=== PATIENT | male | born 1990 | race African-American/Black ===

== ENCOUNTER 2016-04-22 17:36 | Emergency (ER) | payer OTHER ==
[~2016-04-22 17:36] MED LIST: BACTRIM,SEPT1 TABLET PO; CLONIDINE PO; DISKETS40 MG PO; GRALISE300 MG PO; IBUPROFEN800 MG PO; KEFLEX500 MG PO; MOTRIN800 MG PO; NEURONTIN300 MG PO; TEGRETOL; TRAMADOL HCL50 MG PO
[2016-04-22 18:25] LABS: EOSINOPHIL COUNT 0.3 K/uL (0-0.3); HEMATOCRIT 38.9 % (38.0-50.0); IMMATURE GRANULOCYTE (%) 0.1 % (0.0-0.7); IMMATURE GRANULOCYTE COUNT 0.1 K/uL; LYMPHOCYTE COUNT 2.9 K/uL (1.0-2.8); MCH 27.9 PG (29.0-34.0); MCHC 35.5 G/DL (30.0-36.0); MCV 78.6 FL (86-99); MEAN PLAT.VOLUME 9.4 uM^3 (9.0-12.4); MONOCYTE (%) 5.8 % (3-12); MONOCYTE COUNT 0.4 K/uL (0-0.8); NEUTROPHIL (%) 48.3 % (45-76); NEUTROPHIL COUNT 3.4 K/uL (1.8-6.4); PLATELET COUNT 359 K/uL (156-360); RBC DIS.WIDTH-CV 14.1 % (11.8-14.6); RBC DIS.WIDTH-SD 39.5 % (39-53); RED BLOOD COUNT 4.95 M/uL (4.00-5.50); WHITE BLOOD COUNT 6.9 K/uL (4.1-10.2)
[2016-04-22 18:35] LABS: AMYLASE 64 IU/L (1-118); CHLORIDE 105 mEq/L (99-109); POTASSIUM 3.8 mEq/L (3.7-5.4); SODIUM 142 mEq/L (136-147)
[2016-04-22 18:37] LABS: GLUCOSE 102 mg/dL (70-99)
[2016-04-22 18:39] LABS: ANION GAP 10 MEQ/L (2-14)
[2016-04-22 18:40] LABS: SERUM ETHYL ALCOHOL < 10 mg/dL
[2016-04-22 18:41] LABS: GFR ESTIMATE (CALCULATED) > 59 mL/min/
[2016-04-22 18:42] LABS: UREA NITROGEN (BUN) 9 mg/dL (9-23)
[2016-04-22 18:44] LABS: LIPASE 41 U/L (1.0-51.0)
[2016-04-22] MEDS ORDERED: CLEOCIN300 MG PO (19:49)
[2016-04-22] MEDS ORDERED: OXAYDO5 MG PO (19:49)
[2016-04-22] MEDS ORDERED: PARAFON FORTE500 MG PO (19:49)
== END 2016-04-22 20:51 | disposition home or self-care (01) ==
LOC: TRA 17:36
PROVIDERS: Emergency Medicine
PROC: 0KQ Muscles, Repair (ICD-10-PCS; principal; 2016-04-22)
PROC: 0JQD3ZZ Repair Right Upper Arm Subcutaneous Tissue and Fascia, Percutaneous Approach (ICD-10-PCS; 2016-04-22)
PROC: 3E0234Z Introduction of Serum, Toxoid and Vaccine into Muscle, Percutaneous Approach (ICD-10-PCS; 2016-04-22)
DX: S46.822A Laceration of other muscles, fascia and tendons at shoulder and upper arm level, left arm, initial encounter (principal); S41.011A Laceration without foreign body of right shoulder, initial encounter; X99.1XXA Assault by knife, initial encounter; W10.9XXA Fall (on) (from) unspecified stairs and steps, initial encounter; F11.99 Opioid use, unspecified with unspecified opioid-induced disorder; Z91.14 Patient's other noncompliance with medication regimen; Z23 Encounter for immunization; F17.210 Nicotine dependence, cigarettes, uncomplicated
CPT/HCPCS: 71010; 80048; 81003; 82150; 83690; 85025; 86850; 86900; 86901; 99281; 99285; G0480; J3010

== ENCOUNTER 2016-08-23 14:14 | Emergency (ER) | payer SELFPAY ==
[~2016-08-23] VITALS: Ht 182.9 cm; Wt 86.3 kg
[~2016-08-23 14:14] MED LIST changes: +CLEOCIN300 MG PO; +OXAYDO5 MG PO; +PARAFON FORTE500 MG PO
[2016-08-23] MEDS ORDERED: VIBRAMYCIN100 MG PO (16:48)
[2016-08-23] MEDS ORDERED: INDOCIN50 MG PO (16:48)
[2016-08-23 17:02] VITALS: BP 132/100
== END 2016-08-23 17:03 | disposition home or self-care (01) ==
LOC: EME 14:14
DX: L73.9 Follicular disorder, unspecified (principal); L03.211 Cellulitis of face; F17.200 Nicotine dependence, unspecified, uncomplicated
CPT/HCPCS: 99281

== ENCOUNTER 2016-09-13 03:18 | Emergency (ER) | payer SELFPAY ==
[~2016-09-13 03:18] MED LIST changes: +INDOCIN50 MG PO; +VIBRAMYCIN100 MG PO
[2016-09-13] MEDS ORDERED: NAPROSYN500 MG PO (03:48)
[2016-09-13] MEDS ORDERED: MEDROL DOSEPAK4 MG PO (03:48)
[2016-09-13] MEDS ORDERED: CLEOCIN300 MG PO (03:48)
[2016-09-13] MEDS ORDERED: FLEXERIL10 MG PO (03:48)
== END 2016-09-13 04:05 | disposition left against medical advice (07) ==
LOC: EME 03:18
DX: J34.0 Abscess, furuncle and carbuncle of nose (principal); M54.5 Low back pain
CPT/HCPCS: 99281; 99282

== ENCOUNTER 2016-11-01 15:59 | Emergency (ER) | payer OTHER ==
[~2016-11-01] VITALS: Ht 182.9 cm; Wt 77.2 kg
[~2016-11-01 15:59] MED LIST changes: +FLEXERIL10 MG PO; +MEDROL DOSEPAK4 MG PO; +NAPROSYN500 MG PO
[2016-11-01 21:16] VITALS: BP 142/100
== END 2016-11-01 21:19 ==
LOC: EME 15:59
DX: S02.2XXA Fracture of nasal bones, initial encounter for closed fracture (principal); S16.1XXA Strain of muscle, fascia and tendon at neck level, initial encounter; S00.83XA Contusion of other part of head, initial encounter; Y04.2XXA Assault by strike against or bumped into by another person, initial encounter; Y92.143 Cell of prison as the place of occurrence of the external cause; J34.2 Deviated nasal septum; K02.9 Dental caries, unspecified; Z72.0 Tobacco use
CPT/HCPCS: 70450; 70486; 72125; 99281; 99284; J2270

== ENCOUNTER 2017-05-11 15:02 | Emergency (ER) | payer OTHER ==
[~2017-05-11] VITALS: Ht 190.5 cm; Wt 91.5 kg
[2017-05-11 16:53] LABS: HEMATOCRIT 39.9 % (38.0-50.0); MCH 29.7 PG (29.0-34.0); MCHC 35.1 G/DL (30.0-36.0); MCV 84.5 FL (86-99); PLATELET COUNT 275 K/uL (156-360); RBC DIS.WIDTH-CV 13.5 % (11.8-14.6); RBC DIS.WIDTH-SD 41.8 % (39-53); RED BLOOD COUNT 4.72 M/uL (4.00-5.50); WHITE BLOOD COUNT 10.9 K/uL (4.1-10.2)
[2017-05-11 17:06] LABS: CHLORIDE 106 mEq/L (99-109); SODIUM 142 mEq/L (136-147)
[2017-05-11 17:08] LABS: GLUCOSE 116 mg/dL (70-99)
[2017-05-11 17:12] LABS: CREATININE 0.8 mg/dL (0.6-1.3); GFR ESTIMATE (CALCULATED) > 59 mL/min/ (58.99-99999); UREA NITROGEN (BUN) 8 mg/dL (9-23)
[2017-05-11] MEDS ORDERED: VENTOLIN HFA18 GM IH (17:37)
[2017-05-11] MEDS ORDERED: LEVAQUIN750 MG PO (17:37)
[2017-05-11] MEDS ORDERED: NAPROSYN500 MG PO (17:37)
[2017-05-11] MEDS ORDERED: PREDNISONE20 MG PO (17:37)
[2017-05-11 18:02] VITALS: BP 130/98
== END 2017-05-11 18:04 | disposition home or self-care (01) ==
LOC: EME 15:02
DX: J18.9 Pneumonia, unspecified organism (principal); J45.909 Unspecified asthma, uncomplicated; F17.200 Nicotine dependence, unspecified, uncomplicated; R56.9 Unspecified convulsions; F32.9 Major depressive disorder, single episode, unspecified; F41.9 Anxiety disorder, unspecified; Z88.2 Allergy status to sulfonamides; Z88.1 Allergy status to other antibiotic agents; Z91.040 Latex allergy status
CPT/HCPCS: 71046; 80048; 85027; 94640; 99281; 99284; J7512

== ENCOUNTER 2017-05-29 03:32 | Emergency (ER) | payer OTHER ==
[~2017-05-29] VITALS: Ht 188 cm; Wt 88.7 kg
[~2017-05-29 03:32] MED LIST changes: +LEVAQUIN750 MG PO; +PREDNISONE20 MG PO; +VENTOLIN HFA18 GM IH
[2017-05-29 05:32] VITALS: BP 135/78
== END 2017-05-29 05:32 | disposition home or self-care (01) ==
LOC: EME 03:32
DX: J06.9 Acute upper respiratory infection, unspecified (principal); R11.2 Nausea with vomiting, unspecified; Z87.01 Personal history of pneumonia (recurrent); Z72.0 Tobacco use; J45.909 Unspecified asthma, uncomplicated; Z88.1 Allergy status to other antibiotic agents; Z88.2 Allergy status to sulfonamides
CPT/HCPCS: 71046; 99281; 99285; J1100

== ENCOUNTER 2017-06-09 14:39 | Emergency (ER) | payer OTHER ==
[~2017-06-09] VITALS: Ht 188 cm; Wt 84.0 kg
[2017-06-09] MEDS ORDERED: FLEXERIL10 MG PO (16:50)
[2017-06-09 17:12] VITALS: BP 145/90
== END 2017-06-09 17:15 | disposition home or self-care (01) ==
LOC: EME 14:39
DX: S40.012A Contusion of left shoulder, initial encounter (principal); V09.29XA Pedestrian injured in traffic accident involving other motor vehicles, initial encounter; Y92.410 Unspecified street and highway as the place of occurrence of the external cause; J45.909 Unspecified asthma, uncomplicated; F17.200 Nicotine dependence, unspecified, uncomplicated
CPT/HCPCS: 71046; 73010; 73030; 99281; 99283